=== PATIENT | male | born 1995 | race Caucasian/White ===

== ENCOUNTER 2017-02-09 17:58 | Emergency (ER) | payer SELFPAY ==
--- NOTE | 2017-02-09 19:12 | ER Document Report ---
HPI - HPI Patient complains to provider of: dental pain Onset: Yesterday Onset/Duration: Sudden Quality of pain: Achy Severity: Severe Pain Level: 5 Context: Patient presents to the emergency department with complaints of mouth pain and swelling. He reports swelling started last night with increased pain. He reports widespread dental decay with a broken tooth in the right lower jaw. Denies other symptoms such as fever vomiting diarrhea. Reports he called around for a dentist appointment but was unable to get one on short notice. Patient does not have insurance. Associated Symptoms: None Exacerbated by: Denies Relieved by: Denies Similar symptoms previously: No Recently seen / treated by doctor: No - DERM Skin Color: Normal, [place] Past Medical History - General Information source: Patient - Social History Smoking Status: Current Every Day Smoker Cigarette use (# per day): Yes Chew tobacco use (# tins/day): No Frequency of alcohol use: None Drug Abuse: None Family History: None - Medical History Medical History: Negative Renal/ Medical History: Denies: Hx Peritoneal Dialysis Surgical Hx: Negative Vertical Provider Document - CONSTITUTIONAL Agree With Documented VS: Yes Exam Limitations: No Limitations General Appearance: WD/WN, Mild Distress - winces in pain with palpation to dental abscess - INFECTION CONTROL TRAVEL OUTSIDE OF THE [place] IN LAST 30 DAYS: No - HEENT HEENT: Atraumatic, Normocephalic Mouth Diagram: 1 - noted dental decay, abscess pustule noted with swelling, opens mouth wide, clear voice, no ludwigs, no trismus - NECK Neck: Normal Inspection, Supple. negative: Lymphadenopathy-Left, Lymphadenopathy-Right - RESPIRATORY Respiratory: Breath Sounds Normal O2 Sat by Pulse Oximetry: 97 - CARDIOVASCULAR Cardiovascular: Regular Rate - MUSCULOSKELETAL/EXTREMETIES Musculoskeletal/Extremeties: MANOJ SALDANA - NEURO Level of Consciousness: Awake, Alert, Appropriate Motor/Sensory: No Motor Deficit - DERM Integumentary: Warm, Dry Course - Re-evaluation Re-evalutation: 02/09/17 19:46 Lidocaine applied to the patient's gumline pustule. area deroofed with a needle , very large amount of foul smelling pus obtained, pt tolerated procedure well. Given written dental resource information - Vital Signs Vital signs: Temp Pulse Resp BP Pulse Ox 98.7 F 85 16 151/87 H 97 02/09/17 18:58 02/09/17 18:58 02/09/17 18:58 02/09/17 18:58 02/09/17 18:58 Discharge - Discharge Clinical Impression: Dental abscess, Elevated blood pressure reading Condition: Stable Disposition: HOME, SELF-CARE Instructions: Clindamycin ([facility]), Oral Narcotic Medication ([facility]), Dentist, Dental Infection or Abscess ([facility]) Additional Instructions: *You have been evaluated for dental pain, abscess *Take medications as prescribed *Follow up with a dentist within one week *Return to ED for worsening condition, changes, needs, increased abscess, swelling, fever, difficulty opening your mouth Monitor your blood pressure. Your blood pressure was elevated today. This may be because you were anxious, in pain or because you need medication. It is important to follow up with your primary care provider for full evaluation. Prescriptions: Clindamycin HCl [Cleocin 300 mg Capsule] 300 mg PO BID #14 capsule Oxycodone HCl/Acetaminophen [Percocet 5-325 mg Tablet] 1 - 2 tab PO ASDIR PRN # 15 tablet PRN Reason: Forms: Elevated Blood Pressure
[2017-02-09] MEDS ORDERED: OXYCODONE-ACETAMINOPHEN 5-325 MG TABLET PO ONE (19:17)
[2017-02-09] MEDS ORDERED: LIDOCAINE 2% VISCOUS SOLN 20 ML UDCUP PO ONE (19:18)
[2017-02-09] MEDS ORDERED: CLINDAMYCIN HCL 150 MG CAPSULE PO ONE (19:35)
[2017-02-09 19:57] VITALS: BP 133/98
== END 2017-02-09 19:58 | disposition home or self-care (01) ==
LOC: ER 17:58
DX: K04.7 Periapical abscess without sinus (principal); F17.210 Nicotine dependence, cigarettes, uncomplicated
CPT/HCPCS: 99282; J3490